=== PATIENT | female | born 1990 | race Caucasian/White ===

== ENCOUNTER 2019-02-02 08:57 | Emergency (ER) | payer MEDICAID ==
[~2019-02-02] VITALS: Ht 170.2 cm; Wt 80.0 kg
[2019-02-02] MEDS ORDERED: ONDANSETRON ODT 4 MG PO ONE (09:30)
[2019-02-02] MEDS ORDERED: ACETAMINOPHEN 325 MG TABLET PO ONE (09:30)
--- NOTE | 2019-02-02 09:31 | NUR ---
Pt resting on guterrie requesting warm blanket. Warm blanket provided.
--- NOTE | 2019-02-02 09:33 | NUR ---
Pt transported on gurney to imaging.
[2019-02-02] MEDS ORDERED: ONDANSETRON ODT 8 MG ONE (09:56)
[2019-02-02] MEDS ORDERED: ACETAMINOPHEN 325 MG TABLET ONE (09:56)
--- NOTE | 2019-02-02 10:07 | NUR ---
Provided pt medication per EMAR. Pt states, "I went out drinking last night and I don't know know I got home. My lower back hurts on the spine to the left and my left ankle hurts. It started to get discolored and it feels like pins and needles on the top of my left foot." NADN. Pt resting on gurney with boyfriend at bedside. All safety measures in place. Call light within reach. No needs expressed at this time.
[2019-02-02 10:08] LABS: BASOPHILS # (AUTO) 0.05 x10^3/uL (0-0.1); BASOPHILS % (AUTO) 1 % (0-1); EOSINOPHILS # (AUTO) 0.02 x10^3/uL (0-0.4); EOSINOPHILS % (AUTO) 0 % (1-7); LYMPHOCYTES # (AUTO) 2.02 x10^3/uL (1-3.4); LYMPHOCYTES % (AUTO) 25 % (22-44); MD NO; MEAN CORPUSCULAR HEMOGLOBIN 27.9 pg (27.0-34.8); MEAN CORPUSCULAR HGB CONC 33.6 g/dL (32.4-35.8); MEAN PLATELET VOLUME 8.2 fL (7.4-10.4); MONOCYTES # (AUTO) 0.62 x10^3/uL (0.2-0.8); MONOCYTES % (AUTO) 8 % (2-9); NEUTROPHILS # (AUTO) 5.44 x10^3/uL (1.8-6.8); NEUTROPHILS % (AUTO) 67 % (42-75); PLATELET COUNT 406 x10^3/uL (130-400); RED BLOOD COUNT 4.77 x10^6/uL (3.82-5.3); RED CELL DISTRIBUTION WIDTH 15.4 % (9.6-15.2)
[2019-02-02 10:19] LABS: ALANINE AMINOTRANSFERASE 14 U/L (12-78); ALBUMIN 3.1 g/dL (3.4-5.0); ANION GAP 7 mmol/L (5-15); CALCIUM 7.8 mg/dL (8.5-10.1); CHLORIDE 113 mmol/L (98-107); CREATININE 0.59 mg/dL (0.55-1.02)
[2019-02-02 10:24] LABS: ALKALINE PHOSPHATASE 62 U/L (45-117); BILIRUBIN,TOTAL 0.3 mg/dL (0.2-1.0); TOTAL PROTEIN 6.2 g/dL (6.4-8.2)
[2019-02-02 11:06] VITALS: BP 109/74
--- NOTE | 2019-02-02 11:08 | NUR ---
Patient/Caregiver given discharge instructions and they have confirmed that they understand the instructions. Patient ambulatory with steady gait. Pt left with all personal belongings.
== END 2019-02-02 11:09 | disposition home or self-care (01) ==
LOC: ED 10:18
DX: S22.050A Wedge compression fracture of T5-T6 vertebra, initial encounter for closed fracture (principal); R11.2 Nausea with vomiting, unspecified; M25.572 Pain in left ankle and joints of left foot; X58.XXXA Exposure to other specified factors, initial encounter; Y92.89 Other specified places as the place of occurrence of the external cause; Y93.89 Activity, other specified; Y99.8 Other external cause status
CPT/HCPCS: 36415; 72072; 73610; 80053; 83690; 84703; 85025; 99284; Q0162

== ENCOUNTER 2021-02-05 23:45 | Inpatient (IN) | payer MEDICAID, OTHER ==
[~2021-02-05] VITALS: Ht 170.2 cm; Wt 93.0 kg
[2021-02-06] MEDS ORDERED: ONDANSETRON 2MG/ML, 2ML IVPush ONE
[2021-02-06] MEDS ORDERED: SODIUM CHLORIDE FLUSH 10ML SYR IVF ONE
[2021-02-06] MEDS ORDERED: MORPHINE SULFATE 4 MG/ML, 1ML ONE ×2 (00:07→01:06)
[2021-02-06] MEDS ORDERED: ONDANSETRON 2MG/ML, 2ML ONE (00:07)
[2021-02-06] MEDS: MORPHINE SULFATE 4 MG/ML, 1ML IVPush PRN ×2 (00:19→01:13)
[2021-02-06 00:38] LABS: MEAN CORPUSCULAR HEMOGLOBIN 29.6 pg (27.0-34.8); MEAN CORPUSCULAR HGB CONC 33.8 g/dL (32.4-35.8); MEAN PLATELET VOLUME 8.5 fL (7.4-10.4); PLATELET COUNT 376 x10^3/uL (130-400); RED BLOOD COUNT 4.69 x10^6/uL (3.82-5.3); RED CELL DISTRIBUTION WIDTH 14.2 % (9.6-15.2)
[2021-02-06 00:47] LABS: ALANINE AMINOTRANSFERASE 18 U/L (12-78); ALBUMIN 3.6 g/dL (3.4-5.0); ANION GAP 6 mmol/L (5-15); CALCIUM 8.7 mg/dL (8.5-10.1); CHLORIDE 107 mmol/L (98-107)
[2021-02-06 00:52] LABS: ALKALINE PHOSPHATASE 88 U/L (45-117); BILIRUBIN,TOTAL 0.8 mg/dL (0.2-1.0); TOTAL PROTEIN 8.2 g/dL (6.4-8.2)
--- NOTE | 2021-02-06 01:28 | NUR ---
PT TO CT
[2021-02-06 01:34] LABS: MD YES
[2021-02-06 01:35] LABS: BAND#(MANUAL) 1.66 x10^3/uL; BANDS%(MANUAL) 9 % (0-7); LYMPH#(MANUAL) 1.47 x10^3/uL (1-3.4); LYMPHS% (MANUAL) 8 % (22-44); MONOS% (MANUAL) 6 % (2-9); SEG#(MANUAL) 14.17 x10^3/uL (1.8-6.8); SEGS% (MANUAL) 77 % (42-75)
[2021-02-06 01:41] LABS: <PLATELET ESTIMATE> ADEQUATE; <PLT MORPHOLOGY> NORMAL PLT MORPH; ANISOCYTOSIS 1+
[2021-02-06] MEDS ORDERED: OMNIPAQUE 350 MG/ML, 100ML BOTTLE ONE (01:46)
--- NOTE | 2021-02-06 01:50 | NUR ---
PT SCREAMING SAYING SHE IS IN PAIN. PT HAS RECEIVED TWO DOSES OF MORPHINE FOR A TOTAL OF 8MG. PT SAYS IT DIDN'T TOUCH HER AND WANTS MORE. NICOLE AND AWARE AND ADVISED. DILAUDID 1 MG ORDERED AND ADMINISTERED IV, PT STATES SHE IS STILL IN PAIN AND "JUST WANT TO BE KNOCKED OUT" AND "CAN YOU KNOCK ME OUT". NICOLE AND AWARE. PT IN POSITION OF COMFORT.
[2021-02-06] MEDS ORDERED: HYDROmorphone 1 MG/ML, 1ML INJ ONE (02:05)
[2021-02-06] MEDS ORDERED: HYDROmorphone 1 MG/ML, 1ML INJ IV ONE (02:30)
[2021-02-06] MEDS ORDERED: PIPERACILLIN/TAZO/PMX 3.375GM 50 ML ONE (02:52)
[2021-02-06] MEDS ORDERED: PIPERACILLIN/TAZO/PMX 3.375GM 50 ML IV ONE (03:00)
[2021-02-06] MEDS ORDERED: SODIUM CHLORIDE 0.9% 1,000ML IVBOLUS ONE (03:00)
--- NOTE | 2021-02-06 03:04 | NUR ---
fluids started, awaiting blood cultures prior to abx admin
--- NOTE | 2021-02-06 03:10 | NUR ---
seen by hospitalist. pt states she is unable to give ua sample at this time still
[2021-02-06] MEDS ORDERED: DOCUSATE 100 MG CAPSULE PO PRN (03:30)
[2021-02-06] MEDS ORDERED: LORazepam 2 MG/ML, 1ML IV PRN ×5 (03:30)
[2021-02-06] MEDS ORDERED: POTASSIUM CHLORIDE 40 MEQ in SODIUM CHLORIDE 0.9% 500 ML IV ONE (03:30)
[2021-02-06] MEDS ORDERED: hydrALAzine 20 MG/ML, 1ML IVPush PRN (03:30)
[2021-02-06] MEDS ORDERED: LORazepam 1MG TABLET PO PRN ×3 (03:30)
[2021-02-06 03:49] LABS: MICROSCOPIC INDICATED
--- NOTE | 2021-02-06 03:49 | NUR ---
report given to krystal enciso
--- NOTE | 2021-02-06 03:49 | NUR ---
abx hung after blood cultures
[2021-02-06 04:15] VITALS: BP 112/74
[2021-02-06] MEDS: OXYcodone IR 5MG TABLET PO PRN ×5 (04:45→20:47)
[2021-02-06] MEDS: CEFTRIAXONE PMX 2GM/50ML 50 ML IVPB SCH (04:53)
[2021-02-06 05:30] LABS: BASOPHILS % (AUTO) 1 % (0-1); EOSINOPHILS % (AUTO) 0 % (1-7); LYMPHOCYTES % (AUTO) 5 % (22-44); MEAN CORPUSCULAR HEMOGLOBIN 29.3 pg (27.0-34.8); MEAN CORPUSCULAR HGB CONC 33.1 g/dL (32.4-35.8); MEAN PLATELET VOLUME 8.2 fL (7.4-10.4); MONOCYTES % (AUTO) 5 % (2-9); NEUTROPHILS % (AUTO) 90 % (42-75); PLATELET COUNT 328 x10^3/uL (130-400); RED BLOOD COUNT 4.22 x10^6/uL (3.82-5.3); RED CELL DISTRIBUTION WIDTH 14.1 % (9.6-15.2)
[2021-02-06] MEDS: METRONIDAZOLE PMX 500MG/100ML 100 ML IV SCH ×3 (05:39→22:33)
[2021-02-06 05:40] LABS: ALBUMIN 3.1 g/dL (3.4-5.0); ANION GAP 5 mmol/L (5-15); CHLORIDE 105 mmol/L (98-107)
[2021-02-06 05:49] LABS: ALANINE AMINOTRANSFERASE 15 U/L (12-78); ALKALINE PHOSPHATASE 73 U/L (45-117); BILIRUBIN,TOTAL 0.8 mg/dL (0.2-1.0); CHOL/HDL RATIO 2.6; CHOLESTEROL, TOTAL 142 mg/dL (140-239); CREATININE 0.74 mg/dL (0.55-1.02); HDL CHOL % 38 % (28-40); HDL CHOLESTEROL (DIRECT) 54 mg/dL (40-60); LDL CHOLESTEROL,CALCULATED 75 mg/dL (54-169); LDL/HDL RATIO 1.4 (0.5-3.0); TOTAL PROTEIN 6.9 g/dL (6.4-8.2); TRIGLYCERIDES 65 mg/dL (50-200); VLDL CHOLESTEROL 13 mg/dL (0-25)
[2021-02-06 06:15] LABS: MD SCAN
[2021-02-06] MEDS ORDERED: KCL MC SCH (07:30)
[2021-02-06 07:37] VITALS: BP 102/89
[2021-02-06] MEDS: PANTOPRAZOLE 40 MG IV IVPush SCH (07:45)
[2021-02-06] MEDS: ENOXAPARIN 40 MG/0.4 ML SQ SCH (08:19)
[2021-02-06] MEDS ORDERED: PHARMACY INSTRUCTION MC ONE (11:00)
[2021-02-06] MEDS ORDERED: POTASSIUM CHLORIDE 20 MEQ in SODIUM CHLORIDE 0.9% 250 ML IV ONE (12:00)
[2021-02-06 15:59] VITALS: BP 115/74
[2021-02-06] MEDS: NICOTINE 14MG/24 HR PATCH.TD24 TD SCH (17:46)
[2021-02-06] MEDS ORDERED: LORazepam 2 MG/ML, 1ML IVPush ONE (19:00)
[2021-02-06 19:53] VITALS: BP 118/76
[2021-02-06] MEDS: D5%-0.9% NACL 1,000 ML IV SCH (20:03)
[2021-02-06] MEDS: LORazepam 1MG TABLET PO PRN (22:33)
[2021-02-07 01:10] VITALS: BP 110/72
[2021-02-07] MEDS: OXYcodone IR 5MG TABLET PO PRN ×5 (04:30→20:07)
[2021-02-07] MEDS: LORazepam 0.5MG TABLET PO PRN ×4 (04:30→16:15)
[2021-02-07] MEDS: D5%-0.9% NACL 1,000 ML IV SCH (04:31)
[2021-02-07] MEDS: CEFTRIAXONE PMX 2GM/50ML 50 ML IVPB SCH (04:31)
[2021-02-07 05:36] LABS: BASOPHILS % (AUTO) 1 % (0-1); EOSINOPHILS % (AUTO) 1 % (1-7); LYMPHOCYTES % (AUTO) 15 % (22-44); MEAN CORPUSCULAR HEMOGLOBIN 29.5 pg (27.0-34.8); MEAN CORPUSCULAR HGB CONC 33.3 g/dL (32.4-35.8); MEAN PLATELET VOLUME 8.4 fL (7.4-10.4); MONOCYTES % (AUTO) 7 % (2-9); NEUTROPHILS % (AUTO) 77 % (42-75); PLATELET COUNT 292 x10^3/uL (130-400); RED BLOOD COUNT 3.97 x10^6/uL (3.82-5.3); RED CELL DISTRIBUTION WIDTH 14.2 % (9.6-15.2)
[2021-02-07 05:37] LABS: MD NO
[2021-02-07 05:38] LABS: ALBUMIN 2.7 g/dL (3.4-5.0); ANION GAP 5 mmol/L (5-15); CHLORIDE 108 mmol/L (98-107)
[2021-02-07 05:40] LABS: CREATININE 0.67 mg/dL (0.55-1.02)
[2021-02-07] MEDS: METRONIDAZOLE PMX 500MG/100ML 100 ML IV SCH ×3 (06:41→22:11)
[2021-02-07 07:20] VITALS: BP 117/79
[2021-02-07] MEDS: PANTOPRAZOLE 40 MG IV IVPush SCH (08:35)
[2021-02-07] MEDS: ENOXAPARIN 40 MG/0.4 ML SQ SCH (08:35)
[2021-02-07] MEDS ORDERED: POTASSIUM PHOSPHATE 44 MEQ in SODIUM CHLORIDE 0.9% 500 ML IV ONE (09:00)
[2021-02-07] MEDS: ONDANSETRON 2MG/ML, 2ML IVPush PRN (12:39)
[2021-02-07 12:42] VITALS: BP 122/82
[2021-02-07] MEDS: NICOTINE 14MG/24 HR PATCH.TD24 TD SCH (16:15)
[2021-02-07 19:42] VITALS: BP 137/91
[2021-02-07] MEDS: ONDANSETRON ODT 4 MG PO PRN (20:20)
[2021-02-07] MEDS ORDERED: GUAIFENESIN/DM 200-20MG, 10ML UDC PO PRN (21:00)
[2021-02-08 01:50] VITALS: BP 120/78
[2021-02-08] MEDS: ONDANSETRON ODT 4 MG PO PRN ×2 (01:54→06:04)
[2021-02-08] MEDS: OXYcodone IR 5MG TABLET PO PRN ×5 (01:54→21:40)
[2021-02-08] MEDS: LORazepam 1MG TABLET PO PRN ×3 (04:11→14:28)
[2021-02-08] MEDS: CEFTRIAXONE PMX 2GM/50ML 50 ML IVPB SCH (04:14)
[2021-02-08 05:44] LABS: BASOPHILS % (AUTO) 1 % (0-1); EOSINOPHILS % (AUTO) 1 % (1-7); LYMPHOCYTES % (AUTO) 22 % (22-44); MEAN CORPUSCULAR HEMOGLOBIN 29.8 pg (27.0-34.8); MEAN CORPUSCULAR HGB CONC 33.5 g/dL (32.4-35.8); MEAN PLATELET VOLUME 8.1 fL (7.4-10.4); MONOCYTES % (AUTO) 6 % (2-9); NEUTROPHILS % (AUTO) 70 % (42-75); PLATELET COUNT 326 x10^3/uL (130-400); RED BLOOD COUNT 3.79 x10^6/uL (3.82-5.3); RED CELL DISTRIBUTION WIDTH 13.9 % (9.6-15.2)
[2021-02-08 05:46] LABS: MD NO
[2021-02-08 05:50] LABS: ALBUMIN 2.3 g/dL (3.4-5.0); ANION GAP 4 mmol/L (5-15); CALCIUM 7.9 mg/dL (8.5-10.1); CHLORIDE 110 mmol/L (98-107); CREATININE 0.59 mg/dL (0.55-1.02)
[2021-02-08] MEDS: METRONIDAZOLE PMX 500MG/100ML 100 ML IV SCH ×2 (05:59→14:28)
[2021-02-08 08:26] VITALS: BP 115/75
[2021-02-08] MEDS: PANTOPRAZOLE 40 MG IV IVPush SCH (10:01)
[2021-02-08] MEDS: ENOXAPARIN 40 MG/0.4 ML SQ SCH (10:05)
[2021-02-08 13:06] LABS: CLOSTRIDIUM DIFFICILE ANTIGEN NEGATIVE; CLOSTRIDIUM DIFFICILE TOXIN NEGATIVE (Negative)
[2021-02-08 14:29] VITALS: BP 107/71
[2021-02-08] MEDS ORDERED: CHLORDIAZEPOXIDE 25 MG CAPSULE PO PRN (15:00)
[2021-02-08] MEDS: GABAPENTIN 300 MG CAPSULE PO SCH ×2 (17:15→20:58)
[2021-02-08] MEDS: metroNIDAZOLE 500 MG TABLET PO SCH ×2 (17:15→20:58)
[2021-02-08] MEDS: NICOTINE 14MG/24 HR PATCH.TD24 TD SCH (17:16)
[2021-02-08 19:57] VITALS: BP 117/73
[2021-02-08] MEDS ORDERED: MELATONIN 5 MG TABLET PO PRN (20:30)
[2021-02-08] MEDS: CEFDINIR 300 MG CAPSULE PO SCH (20:58)
[2021-02-08] MEDS ORDERED: metroNIDAZOLE 500 MG TABLET PO SCH (22:00)
[2021-02-09 01:19] VITALS: BP 119/77
[2021-02-09] MEDS: OXYcodone IR 5MG TABLET PO PRN ×3 (01:42→10:13)
[2021-02-09] MEDS: ONDANSETRON ODT 4 MG PO PRN (05:47)
[2021-02-09] MEDS ORDERED: PANTOPRAZOLE 40MG TABLET PO SCH (06:00)
[2021-02-09 06:39] VITALS: BP 147/103
[2021-02-09 06:42] VITALS: BP 147/103
[2021-02-09] MEDS: ONDANSETRON 2MG/ML, 2ML IVPush PRN (07:41)
[2021-02-09] MEDS: GABAPENTIN 300 MG CAPSULE PO SCH (07:57)
[2021-02-09] MEDS: CEFDINIR 300 MG CAPSULE PO SCH (07:57)
[2021-02-09] MEDS: metroNIDAZOLE 500 MG TABLET PO SCH (07:57)
[2021-02-09] MEDS: ENOXAPARIN 40 MG/0.4 ML SQ SCH (08:00)
[2021-02-09 09:52] LABS: ALBUMIN 2.7 g/dL (3.4-5.0); ANION GAP 7 mmol/L (5-15); CALCIUM 8.2 mg/dL (8.5-10.1); CHLORIDE 105 mmol/L (98-107)
[2021-02-09 09:57] LABS: ALANINE AMINOTRANSFERASE 9 U/L (12-78); ALKALINE PHOSPHATASE 58 U/L (45-117); BILIRUBIN,TOTAL 0.3 mg/dL (0.2-1.0); CREATININE 0.53 mg/dL (0.55-1.02); TOTAL PROTEIN 6.7 g/dL (6.4-8.2); TROPONIN I < 0.015 ng/mL (0.000-0.045)
[2021-02-09] MEDS ORDERED: CEFD300C37 PO (10:25)
[2021-02-09] MEDS ORDERED: PHOS250T PO (10:25)
[2021-02-09] MEDS ORDERED: METR500T PO (10:25)
[2021-02-09] MEDS ORDERED: GABA300C PO (10:25)
[2021-02-09] MEDS ORDERED: CHLO25CA9 PO ×2 (10:25→10:26)
[2021-02-09] MEDS: LORazepam 0.5MG TABLET PO PRN (11:28)
== END 2021-02-09 12:30 | disposition home or self-care (01) | DRG 872 ==
LOC: ED 02-06 03:33 → EDIP 02-06 03:44 → 4NW 02-06 04:10 → 3N 02-07 21:00 → DCLOUNGE 02-09 12:20
PROVIDERS: ADMIT Internal Medicine; ATTEND Family Medicine
DX: A41.9 Sepsis, unspecified organism (principal); R17 Unspecified jaundice; F10.10 Alcohol abuse, uncomplicated; F12.90 Cannabis use, unspecified, uncomplicated; F17.210 Nicotine dependence, cigarettes, uncomplicated; K52.9 Noninfective gastroenteritis and colitis, unspecified; Z90.49 Acquired absence of other specified parts of digestive tract; Z91.19 Patient's noncompliance with other medical treatment and regimen; Z79.899 Other long term (current) drug therapy; Z79.891 Long term (current) use of opiate analgesic; Z79.01 Long term (current) use of anticoagulants; Z71.41 Alcohol abuse counseling and surveillance of alcoholic
CPT/HCPCS: 36415; 71045; 74177; 80053; 80061; 80069; 81001; 83036; 83605; 83690; 83735; 84100; 84145; 84443; 84484; 84703; 85025; 87040; 87081; 87086; 87324; 87880; 96374; 96375; G0378; J0696; J1170; J1650; J2405; J2543; J3480; J7042; Q0162; Q9967; C9113; J2060; J2270; J7030; J7040; J7050

== ENCOUNTER 2021-03-06 06:03 | Emergency (ER) | payer MEDICAID ==
[~2021-03-06] VITALS: Ht 170.2 cm; Wt 93.0 kg
[~2021-03-06 06:03] MED LIST: CEFD300C37 PO; CHLO25CA9 PO; GABA300C PO; METR500T PO; PHOS250T PO
--- NOTE | 2021-03-06 06:09 | NUR ---
TASK RN: PT PRESENTS TO ED VIA EMS C/O RIGHT LOWER QUAD ABD PAIN X1 WEEK. PT HAS RECENT DX OF COLITIS "FROM ETOH CONSUMPTION", LAST DRINK WAS EARLIER THIS WEEK, "I USED TO DRINK A GALLON OF ETOH A DAY, BUT NOTHING IN 4 DAYS. THE PAIN SEEMED TO START UP REAL BAD AFTER THE DRINKS I HAD A FEW DAYS AGO." PT ALSO C/O "BLOOD IN URINE AND LOTS OF DIARRHEA, IT HASNT BEEN NORMAL POOP. THIS ALL STARTED WITH THE PAIN IN MY BELLY." PT AMBULATORY WITH STEADY GAIT FROM EMS [facility] TO ED [facility], CHANGED INTO GOWN, PLACED ON CONTINUOUS MONITORING. PT DENIES ANY NEEDS AT THIS TIME. CALL LIGHT AND PERSONAL BELONGINGS WITHIN REACH. PRIMARY RN AT BEDSIDE.
[2021-03-06] MEDS ORDERED: ONDANSETRON 2MG/ML, 2ML ONE (06:27)
[2021-03-06] MEDS ORDERED: MORPHINE SULFATE 4 MG/ML, 1ML ONE ×2 (06:27→07:07)
[2021-03-06] MEDS ORDERED: ONDANSETRON 2MG/ML, 2ML IVPush ONE (06:30)
[2021-03-06] MEDS ORDERED: SODIUM CHLORIDE FLUSH 10ML SYR IVF ONE (06:30)
[2021-03-06] MEDS: MORPHINE SULFATE 4 MG/ML, 1ML IVPush PRN ×2 (06:38→07:09)
[2021-03-06 06:39] LABS: BASOPHILS % (AUTO) 1 % (0-1); EOSINOPHILS % (AUTO) 1 % (1-7); LYMPHOCYTES % (AUTO) 15 % (22-44); MEAN CORPUSCULAR HEMOGLOBIN 28.9 pg (27.0-34.8); MEAN CORPUSCULAR HGB CONC 33.3 g/dL (32.4-35.8); MEAN PLATELET VOLUME 8.2 fL (7.4-10.4); MONOCYTES % (AUTO) 9 % (2-9); NEUTROPHILS % (AUTO) 75 % (42-75); PLATELET COUNT 328 x10^3/uL (130-400); RED BLOOD COUNT 4.54 x10^6/uL (3.82-5.3); RED CELL DISTRIBUTION WIDTH 14.4 % (9.6-15.2)
[2021-03-06 06:50] LABS: ALANINE AMINOTRANSFERASE 12 U/L (12-78); ALBUMIN 3.1 g/dL (3.4-5.0); ANION GAP 5 mmol/L (5-15); CALCIUM 8.6 mg/dL (8.5-10.1); CHLORIDE 108 mmol/L (98-107); CREATININE 0.74 mg/dL (0.55-1.02)
[2021-03-06 06:53] LABS: ALKALINE PHOSPHATASE 75 U/L (45-117); BILIRUBIN,TOTAL 0.5 mg/dL (0.2-1.0); TOTAL PROTEIN 7.4 g/dL (6.4-8.2)
[2021-03-06 07:03] LABS: MD SCAN
[2021-03-06] MEDS ORDERED: KETOROLAC 30 MG/1 ML ONE (07:38)
[2021-03-06 07:41] LABS: HCG UR SG 1.025 (1.003-1.030); MICROSCOPIC INDICATED
[2021-03-06] MEDS ORDERED: KETOROLAC 30 MG/1 ML IVPush ONE (08:00)
[2021-03-06] MEDS ORDERED: FLUCONAZOLE 100 MG TABLET ONE (08:17)
[2021-03-06 08:24] VITALS: BP 107/56
[2021-03-06] MEDS ORDERED: FLUCONAZOLE 100 MG TABLET PO ONE (08:30)
--- NOTE | 2021-03-06 08:31 | NUR ---
PT REC'VD DISCHARGE INSTRUCTIONS AND EDUCATION. PT HAD NO FURTHER QUESTIONS. PT AMBULATED TO DC AREA, STEADY GAIT.
== END 2021-03-06 08:45 | disposition home or self-care (01) ==
LOC: ED 06:10
DX: R10.31 Right lower quadrant pain (principal); R11.0 Nausea; R19.7 Diarrhea, unspecified
CPT/HCPCS: 36415; 80053; 81001; 81025; 83605; 83690; 85025; 87086; 96374; 96375; 96376; 99285; J1885; J2270; J2405

== ENCOUNTER 2021-03-10 02:40 | Emergency (ER) | payer MEDICAID ==
[~2021-03-10] VITALS: Ht 162.6 cm; Wt 90.0 kg
[2021-03-10] MEDS ORDERED: KETOROLAC 30 MG/1 ML ONE (03:27)
[2021-03-10] MEDS ORDERED: ONDANSETRON 2MG/ML, 2ML ONE (03:28)
[2021-03-10] MEDS ORDERED: ONDANSETRON 2MG/ML, 2ML IVPush ONE (03:30)
[2021-03-10] MEDS ORDERED: KETOROLAC 30 MG/1 ML IVPush ONE (03:30)
[2021-03-10 04:20] LABS: BASOPHILS % (AUTO) 1 % (0-1); EOSINOPHILS % (AUTO) 1 % (1-7); LYMPHOCYTES % (AUTO) 18 % (22-44); MD NO; MEAN CORPUSCULAR HEMOGLOBIN 29.5 pg (27.0-34.8); MEAN CORPUSCULAR HGB CONC 33.8 g/dL (32.4-35.8); MONOCYTES % (AUTO) 7 % (2-9); NEUTROPHILS % (AUTO) 73 % (42-75); PLATELET COUNT 447 x10^3/uL (130-400); RED BLOOD COUNT 4.31 x10^6/uL (3.82-5.3); RED CELL DISTRIBUTION WIDTH 14.2 % (9.6-15.2)
[2021-03-10] MEDS ORDERED: MORPHINE SULFATE 4 MG/ML, 1ML ONE ×2 (04:29→05:26)
[2021-03-10] MEDS: MORPHINE SULFATE 4 MG/ML, 1ML IVPush PRN ×2 (04:30→05:27)
[2021-03-10 04:31] LABS: MICROSCOPIC NOT IND
[2021-03-10 04:33] LABS: ALANINE AMINOTRANSFERASE 15 U/L (12-78); ANION GAP 6 mmol/L (5-15); CALCIUM 8.8 mg/dL (8.5-10.1); CHLORIDE 106 mmol/L (98-107); CREATININE 0.67 mg/dL (0.55-1.02)
[2021-03-10 04:38] LABS: ALKALINE PHOSPHATASE 71 U/L (45-117); BILIRUBIN,TOTAL 0.3 mg/dL (0.2-1.0); TOTAL PROTEIN 7.9 g/dL (6.4-8.2)
[2021-03-10 05:31] VITALS: BP 109/68
--- NOTE | 2021-03-10 05:45 | NUR ---
Patient given discharge instructions and they have confirmed that they understand the instructions. Patient ambulatory with steady gait. No questions at time of discharge.
== END 2021-03-10 05:47 | disposition home or self-care (01) ==
LOC: ED 03:10
DX: R10.11 Right upper quadrant pain (principal); R19.7 Diarrhea, unspecified
CPT/HCPCS: 36415; 76700; 80053; 81003; 83690; 84703; 85025; 93005; 96374; 96375; 96376; 99285; J1885; J2270; J2405